=== PATIENT | male | born 1960 | race Caucasian/White ===

== ENCOUNTER 2021-05-20 12:07 | Outpatient (CLI) | payer OTHER, SELFPAY ==
--- NOTE | ~2021-05-20 | CT_ITS ---
EXAMINATION: CT chest abdomen pelvis wo con DATE: 05/20/2021 12:35 INDICATION: Unintentional weight loss TECHNIQUE: Transaxial computed tomographic images of the chest, abdomen, and pelvis were obtained. Th e dose-length product (DLP) was 268.49 mGy-cm. Automated exposure control and iterative reconstructio n technique were employed. COMPARISON: None FINDINGS: CHEST CT: There is moderate emphysema. There are airspace opacities with volume loss in the right upper lobe. T here are groundglass and nodular opacities of the right lower lobe. There is no pleural effusion or p neumothorax. The heart size is normal. No pathologically enlarged thoracic lymph nodes are identified . There are healed fractures of the left clavicle and right seventh and eighth ribs. ABDOMEN/PELVIS CT: The spleen is surgically absent. Within the limitations of noncontrast examination, the liver, pancre as, and adrenal glands are normal. The gallbladder is unremarkable. A surgical clip projects at the l iver hilum. There is a punctate nonobstructing stone of the left kidney. There is a 3 cm cyst of the right kidney upper pole. There is calcified atherosclerosis of the aorta and many of the other arteri es. No pathologically enlarged abdominal or pelvic lymph nodes are identified. There is no free intra peritoneal gas or evidence of bowel obstruction. A bowel surgical anastomosis is present in the pelvi s. A moderate volume of colonic stool is present. There is antegrade intramedullary sandra and interlock ing intratrochanteric screw in the left femur. IMPRESSION: 1. Airspace opacities and volume loss in the right upper lobe. Findings could reflect atelectasis or scarring versus malignancy. In addition, presence of right-sided posterior rib deformities could refl ect prior surgery. Recommend correlation with surgical history and if no prior thoracic surgery has b een performed, PET/CT would be recommended. 2. Groundglass and nodular opacities of the right lower lobe, consistent with infection/inflammation. Reviewed, dictated and finalized at location B. IMPRESSION: 1. Airspace opacities and volume loss in the right upper lobe. Findings could r eflect atelectasis or scarring versus malignancy. In addition, presence of righ t-sided posterior rib deformities could reflect prior surgery. Recommend correl ation with surgical history and if no prior thoracic surgery has been performed , PET/CT would be recommended. 2. Groundglass and nodular opacities of the right lower lobe, consistent with i nfection/inflammation.
== END 2021-05-20 12:08 | disposition home or self-care (01) ==
PROVIDERS: PCP Family Medicine; Visit Provider Family Medicine
DX: R63.4 Abnormal weight loss (principal)
CPT/HCPCS: 71250; 74176